=== PATIENT | female | born 1985 | race African-American/Black ===

== ENCOUNTER 2016-05-29 03:09 | Inpatient (IN) | payer MEDICAID, OTHER ==
[~2016-05-29] VITALS: Ht 154.9 cm; Wt 48.4 kg
[2016-05-29 03:52] LABS: Basophils # (auto) 0.1 uL; Basophils % (auto) 0.5 % (0.0-2.0); Eosinophils # (auto) 0 uL; Eosinophils % (auto) 0.4 % (0.0-7.0); Hematocrit 42.7 % (36.0-46.0); Hemoglobin 13.5 g/dL (12.2-16.2); Lymphocytes # (auto) 1.7 uL; Mean Corpuscular Hemoglobin 27.1 pg (28.0-32.0); Mean Corpuscular Hgb Conc. 31.5 g/dL (32.0-36.0); Mean Platelet Volume 8.8 fL (7.4-10.4); Monocytes # (auto) 0.5 uL; Monocytes % (auto) 4.1 % (0.0-12.0); Neutrophils # (auto) 9.2 uL; Platelet Count (auto) 338 10^3/uL (140-450); Red Cell Distribution Width 12.3 % (11.6-16.0); White Blood Cell 11.5 10^3/uL (4.4-10.8)
[2016-05-29 04:00] LABS: Urine Bilirubin Negative (Negative); Urine Color Yellow (Yellow); Urine Mucus FEW (None Seen); Urine Nitrite Negative (Negative); Urine RBC 5 /hpf (0 - 4); Urine Squamous Epithelial Cell MOD /hpf (<5); Urine Urobilinogen Normal (Negative)
[2016-05-29 04:06] LABS: Urine Blood 1+ /uL (Negative); Urine Glucose 4+ mg/dL (Normal); Urine Ketone 2+ (Negative)
[2016-05-29 04:32] LABS: Albumin 4.4 g/dL (3.4-5.0); BUN/Creatinine Ratio 10.5; Bilirubin, Total 0.4 mg/dL (0.2-1.0); Calcium 9.3 mg/dL (8.5-10.1); Magnesium 1.8 mg/dL (1.6-2.6); Total Protein 7.9 g/dL (6.4-8.2)
[2016-05-29] MEDS ORDERED: SODIUM CHLORIDE 0.9% 1,000 ML IVB ONE (08:02)
[2016-05-29] MEDS ORDERED: PANTOPRAZOLE SODIUM 40 MG/10 ML VIAL IV ONE (08:15)
[2016-05-29] MEDS ORDERED: PROCHLORPERAZINE EDISYLATE 5 MG/ML 2ML VIAL IV ONE (08:15)
[2016-05-29] MEDS ORDERED: HYDROmorphone HCL 2 MG/ML VL IV ONE (08:15)
[2016-05-29] MEDS ORDERED: cefTRIAXone 1GM/50ML D5W 50 ML IV ONE (08:30)
[2016-05-29] MEDS ORDERED: LORazepam 0.5 MG TAB PO PRN (08:30)
[2016-05-29] MEDS ORDERED: TEMAZEPAM 15 MG CAP PO PRN (08:30)
[2016-05-29] MEDS: POTASSIUM CHL 20MEQ/100ML 100 ML IV SCH ×4 (08:30→15:15)
[2016-05-29] MEDS ORDERED: MORPHINE SULF INJ 2 MG/ML SYRINGE 1ML IV PRN (08:30)
[2016-05-29] MEDS ORDERED: HYDROcodone-ACET 5/325MG TAB PO PRN (08:30)
[2016-05-29] MEDS ORDERED: DEXTROSE (50%) 50ML SYRG IV PRN (08:30)
[2016-05-29] MEDS ORDERED: NITROGLYCERIN 0.4 MG SL TAB SL PRN (08:30)
[2016-05-29] MEDS ORDERED: ACETAMINOPHEN 500 MG TAB PO PRN (08:30)
[2016-05-29 08:51] LABS: Amylase 72 U/L (25-115)
[2016-05-29] MEDS: SOD CHL 0.9%/ KCL 20MEQ 1,000 ML IV SCH ×2 (09:18→20:25)
[2016-05-29] MEDS ORDERED: InsuLIN REG 1unit/0.01ml Soln (100units/ml) SC SCH (11:30)
[2016-05-29] MEDS ORDERED: ACCU-CHEK COMFORT CURVE STRIP VI SCH (11:30)
[2016-05-29 12:13] LABS: Prothrombin Time 10.3 sec (9.37-12.3)
[2016-05-29 12:52] VITALS: BP 90/52
[2016-05-29] MEDS ORDERED: InsuLIN REG 1unit/0.01ml Soln (100units/ml) IV ONE (14:45)
[2016-05-29] MEDS ORDERED: INFLUENZA QUAD 2016-2017 0.5 ML SYRG IM ONE (14:45)
[2016-05-29] MEDS ORDERED: InsuLIN REG 1unit/0.01ml Soln (100units/ml) SC ONE (14:45)
[2016-05-29] MEDS ORDERED: POTASSIUM CHL 20MEQ/100ML 100 ML IV ONE (14:58)
[2016-05-29] MEDS: InsuLIN REG 1unit/0.01ml Soln (100units/ml) SC SCH ×3 (16:00→23:46)
[2016-05-29] MEDS: ACCU-CHEK COMFORT CURVE STRIP VI SCH ×3 (16:45→23:46)
[2016-05-29 16:46] VITALS: BP 148/96
[2016-05-29] MEDS: MORPHINE SULF INJ 2 MG/ML SYRINGE 1ML IV PRN ×2 (17:02→21:06)
[2016-05-29] MEDS: PROMETHAZINE HCL 25 MG/ML 1ML IV PRN ×2 (17:09→21:06)
[2016-05-29 21:35] VITALS: BP 154/97
[2016-05-30] MEDS: MORPHINE SULF INJ 2 MG/ML SYRINGE 1ML IV PRN ×5 (04:09→22:41)
[2016-05-30] MEDS: InsuLIN REG 1unit/0.01ml Soln (100units/ml) SC SCH ×6 (04:09→23:49)
[2016-05-30] MEDS: ACCU-CHEK COMFORT CURVE STRIP VI SCH ×6 (04:09→23:46)
[2016-05-30] MEDS: PROMETHAZINE HCL 25 MG/ML 1ML IV PRN ×3 (04:10→22:41)
[2016-05-30] MEDS: SOD CHL 0.9%/ KCL 20MEQ 1,000 ML IV SCH ×4 (04:38→23:10)
[2016-05-30 04:46] VITALS: BP 142/88
[2016-05-30 06:47] LABS: Basophils # (auto) 0 uL; Basophils % (auto) 0.3 % (0.0-2.0); Eosinophils # (auto) 0 uL; Hemoglobin 12.2 g/dL (12.2-16.2); Lymphocytes # (auto) 2.4 uL; Lymphocytes % (auto) 17.6 % (10.0-50.0); Mean Corpuscular Hgb Conc. 31.2 g/dL (32.0-36.0); Mean Corpuscular Volume 86.5 fL (80.0-100.0); Mean Platelet Volume 8.6 fL (7.4-10.4); Monocytes # (auto) 0.8 uL; Monocytes % (auto) 5.9 % (0.0-12.0); Neutrophils # (auto) 10.3 uL; Neutrophils % (auto) 76.2 % (37.0-80.0); Platelet Count (auto) 308 10^3/uL (140-450); Red Cell Distribution Width 12.6 % (11.6-16.0); White Blood Cell 13.5 10^3/uL (4.4-10.8)
[2016-05-30 07:23] LABS: Albumin 3.3 g/dL (3.4-5.0); BUN/Creatinine Ratio 15.6; Bilirubin, Total 0.4 mg/dL (0.2-1.0); Calcium 8.4 mg/dL (8.5-10.1); Potassium 3.6 mmol/L (3.5-5.1); Total Protein 6.3 g/dL (6.4-8.2)
[2016-05-30 08:00] VITALS: BP 103/61
[2016-05-30 08:25] VITALS: BP 103/61
[2016-05-30] MEDS ORDERED: GASTROGRAFIN 30 ML SOL ONE ×2 (08:27→08:28)
[2016-05-30] MEDS ORDERED: PIPERACILLIN-TAZOB 3.375GM 100 ML IV ONE (08:45)
[2016-05-30] MEDS ORDERED: cefTRIAXone 1GM/50ML D5W 50 ML IV SCH (09:00)
[2016-05-30] MEDS: PANTOPRAZOLE 40 MG TAB PO SCH ×2 (09:09→21:40)
[2016-05-30] MEDS ORDERED: PANTOPRAZOLE 40 MG TAB PO SCH (10:00)
[2016-05-30] MEDS ORDERED: PROMETHAZINE HCL 25 MG/ML 1ML IV ONE (12:15)
[2016-05-30] MEDS ORDERED: InsuLIN REG 1unit/0.01ml Soln (100units/ml) IV ONE (12:15)
[2016-05-30] MEDS ORDERED: InsuLIN REG 1unit/0.01ml Soln (100units/ml) SC ONE (12:15)
[2016-05-30] MEDS ORDERED: IOHEXOL 300 MG/ML 100ML BOTTLE IJ ONE (12:23)
[2016-05-30 12:49] VITALS: BP 136/87
[2016-05-30] MEDS: PIPERACILLIN-TAZOB 3.375GM 100 ML IV SCH ×2 (15:57→21:40)
[2016-05-30 16:23] VITALS: BP 145/86
[2016-05-30] MEDS ORDERED: metroNIDAZOLE 500MG/100ML 100 ML IV ONE (16:30)
[2016-05-30] MEDS: metroNIDAZOLE 500MG/100ML 100 ML IV SCH ×2 (16:56→23:59)
[2016-05-30 21:00] VITALS: BP 140/92
[2016-05-31] MEDS: MORPHINE SULF INJ 2 MG/ML SYRINGE 1ML IV PRN ×5 (03:05→20:17)
[2016-05-31] MEDS: PIPERACILLIN-TAZOB 3.375GM 100 ML IV SCH ×4 (03:06→20:25)
[2016-05-31] MEDS: PROMETHAZINE HCL 25 MG/ML 1ML IV PRN ×5 (03:07→20:17)
[2016-05-31] MEDS: InsuLIN REG 1unit/0.01ml Soln (100units/ml) SC SCH ×5 (04:00→20:00)
[2016-05-31] MEDS: ACCU-CHEK COMFORT CURVE STRIP VI SCH ×6 (04:03→23:52)
[2016-05-31] MEDS: SOD CHL 0.9%/ KCL 20MEQ 1,000 ML IV SCH ×3 (05:23→19:10)
[2016-05-31] MEDS: metroNIDAZOLE 500MG/100ML 100 ML IV SCH ×4 (05:23→22:57)
[2016-05-31 05:25] VITALS: BP 147/89
[2016-05-31 08:00] VITALS: BP 140/89
[2016-05-31 09:57] VITALS: BP 140/89
[2016-05-31] MEDS: PANTOPRAZOLE 40 MG TAB PO SCH ×2 (12:04→20:31)
[2016-05-31 12:11] VITALS: BP 113/85
[2016-05-31 17:09] VITALS: BP 152/93
[2016-05-31 20:53] VITALS: BP 145/88
[2016-06-01] MEDS: SOD CHL 0.9%/ KCL 20MEQ 1,000 ML IV SCH ×2 (01:57→08:30)
[2016-06-01] MEDS: PIPERACILLIN-TAZOB 3.375GM 100 ML IV SCH ×2 (03:56→12:50)
[2016-06-01] MEDS: MORPHINE SULF INJ 2 MG/ML SYRINGE 1ML IV PRN ×3 (03:56→12:50)
[2016-06-01] MEDS: PROMETHAZINE HCL 25 MG/ML 1ML IV PRN ×3 (03:56→12:49)
[2016-06-01] MEDS: InsuLIN REG 1unit/0.01ml Soln (100units/ml) SC SCH ×4 (04:00→12:00)
[2016-06-01] MEDS: ACCU-CHEK COMFORT CURVE STRIP VI SCH ×3 (04:03→12:00)
[2016-06-01 05:38] VITALS: BP 143/91
[2016-06-01 06:14] LABS: Basophils # (auto) 0 uL; Basophils % (auto) 0.1 % (0.0-2.0); Eosinophils # (auto) 0 uL; Eosinophils % (auto) 0.3 % (0.0-7.0); Hematocrit 40.5 % (36.0-46.0); Hemoglobin 12.7 g/dL (12.2-16.2); Lymphocytes % (auto) 15.1 % (10.0-50.0); Mean Corpuscular Hemoglobin 27.3 pg (28.0-32.0); Mean Corpuscular Hgb Conc. 31.3 g/dL (32.0-36.0); Mean Corpuscular Volume 87.4 fL (80.0-100.0); Mean Platelet Volume 8.5 fL (7.4-10.4); Monocytes # (auto) 0.6 uL; Monocytes % (auto) 4.3 % (0.0-12.0); Neutrophils # (auto) 10.4 uL; Neutrophils % (auto) 80.2 % (37.0-80.0); Platelet Count (auto) 273 10^3/uL (140-450); Red Cell Distribution Width 12.3 % (11.6-16.0); White Blood Cell 12.9 10^3/uL (4.4-10.8)
[2016-06-01] MEDS: metroNIDAZOLE 500MG/100ML 100 ML IV SCH (06:17)
[2016-06-01 08:10] VITALS: BP 126/76
[2016-06-01] MEDS ORDERED: SODIUM CHLORIDE LOCK 10 ML ONE (08:17)
[2016-06-01] MEDS ORDERED: LIDOCAINE VISCOUS 2% 15ML UD ONE (08:18)
[2016-06-01] MEDS ORDERED: diphenhdrAMINE HCL 50 MG/1 ML VL ONE (08:18)
[2016-06-01 09:00] VITALS: BP 126/76
[2016-06-01] MEDS: MIDAZOLAM HCL 5 MG/ML-1ML VIAL ONE ×2 (10:23→10:26)
[2016-06-01] MEDS: fentaNYL CITRATE 100 MCG/2 ML VL ONE ×2 (10:23→10:26)
[2016-06-01 12:49] VITALS: BP 104/56
[2016-06-01] MEDS: PANTOPRAZOLE 40 MG TAB PO SCH (12:51)
[2016-06-01 13:05] LABS: BUN/Creatinine Ratio 11.5; Potassium 3.1 mmol/L (3.5-5.1)
[2016-06-01] MEDS ORDERED: metroNIDAZOLE 500MG/100ML 100 ML IV SCH (16:00)
[2016-06-01 16:32] VITALS: BP 104/56
[2016-06-01 17:30] VITALS: BP 110/60
[2016-06-01] MEDS ORDERED: PIPERACILLIN-TAZOB 3.375GM 100 ML IV SCH (18:00)
== END 2016-06-01 18:10 | disposition home or self-care (01) | DRG 720 ==
LOC: ER 03:10 → TELE 03:11 → ER 04:39 → TELE-CENTR 10:00
PROVIDERS: ADMIT Internal Medicine; ATTEND Internal Medicine Pulmonary Disease
PROC: 0DB68ZX Excision of Stomach, Via Natural or Artificial Opening Endoscopic, Diagnostic (ICD-10-PCS; principal; 2016-06-01 10:15)
DX: A41.9 Sepsis, unspecified organism (principal); E13.10 Other specified diabetes mellitus with ketoacidosis without coma; N17.9 Acute kidney failure, unspecified; K29.60 Other gastritis without bleeding; N39.0 Urinary tract infection, site not specified; E86.0 Dehydration; N83.202 Unspecified ovarian cyst, left side; K52.9 Noninfective gastroenteritis and colitis, unspecified; E87.6 Hypokalemia; K21.0 Gastro-esophageal reflux disease with esophagitis; F17.210 Nicotine dependence, cigarettes, uncomplicated; F12.90 Cannabis use, unspecified, uncomplicated; Z79.4 Long term (current) use of insulin; Z90.49 Acquired absence of other specified parts of digestive tract; Z23 Encounter for immunization
CPT/HCPCS: 36415; 43239; 71020; 74177; 76856; 80048; 80053; 80061; 81001; 81025; 82150; 82962; 83036; 83690; 83735; 84484; 84702; 85025; 85610; 85652; 86141; 87081; 87086; 94761; 96365; 96375; C9113; J0696; J1815; J2250; J2543; J3480; J3490